=== PATIENT | female | born 1985 | race Two or more races ===

== ENCOUNTER 2017-05-24 15:38 | Emergency (ER) | payer MEDICAID, OTHER ==
[~2017-05-24] VITALS: Ht 165.1 cm; Wt 69.4 kg
[2017-05-24 15:41] VITALS: BP 134/76
[2017-05-24] MEDS ORDERED: KETOROLAC TROMETH 60MG/2ML VIAL IM ONE (17:00)
== END 2017-05-24 17:16 | disposition home or self-care (01) ==
LOC: ER 15:44
DX: S29.012A Strain of muscle and tendon of back wall of thorax, initial encounter (principal); X50.9XXA Other and unspecified overexertion or strenuous movements or postures, initial encounter; Y93.89 Activity, other specified; Y92.89 Other specified places as the place of occurrence of the external cause; Y99.8 Other external cause status
CPT/HCPCS: 96372; 99283; J1885